=== PATIENT | female | born 1970 | race Caucasian/White ===

== ENCOUNTER → 2016-09-30 | Outpatient (REF) ==
[~2016-09-30] MED LIST: [UNRECOGNIZED DRUG - OTHER]
== END ==
LOC: WSOH 14:29
DX: Z02.1 Encounter for pre-employment examination (principal)

== ENCOUNTER → 2016-10-07 | Outpatient (REF) | LOC: WSOH 09:55 | DX: Z00.00 Encounter for general adult medical examination without abnormal findings (principal) ==

== ENCOUNTER → 2016-10-13 | Outpatient (REF) | LOC: WSOH 15:39 | DX: Z23 Encounter for immunization (principal) ==

== ENCOUNTER → 2016-11-03 | Outpatient (REF) | LOC: WSOH 17:00 | DX: Z02.89 Encounter for other administrative examinations (principal) ==